=== PATIENT | male | born 1955 | race Caucasian/White ===

== ENCOUNTER 2019-03-20 06:21 | Day surgery (SDC) | payer OTHER ==
[~2019-03-20 06:21] MED LIST: ALTACE5 MG; CIALIS5 MG PO; FLONASE16 GM; GLUMETZA1000 MG; INVOKANA300 MG PO; JANUVIA100 MG PO; LANTU; LANTUS100 U/ML; LOVAZA1 G; NOVOLOG; NOVOLOG100 U/M1; OMEGA3 PO; ZOCOR20 MG; ZOCOR20 MG PO
== END 2019-03-20 12:40 | disposition home or self-care (01) ==
LOC: CIR.AMB 06:21
DX: L72.0 Epidermal cyst (principal)

== ENCOUNTER → 2020-11-21 | Emergency (ER) | payer OTHER ==
[~2020-11-21] VITALS: Ht 182.9 cm; Wt 102.1 kg
[~2020-11-21] MED LIST changes: +ATACAND32 MG PO; +HUMALOG100 UNIT/1
== END | disposition left against medical advice (07) ==
LOC: ER 23:27
DX: Z53.20 Procedure and treatment not carried out because of patient's decision for unspecified reasons (principal)

== ENCOUNTER 2020-11-30 20:42 | Emergency (ER) | payer OTHER ==
[~2020-11-30] VITALS: Ht 182.9 cm; Wt 102.1 kg
[~2020-11-30 20:42] MED LIST changes: -ATACAND32 MG PO
[2020-11-30] MEDS ORDERED: ATACAND32 MG PO (21:10)
== END 2020-12-01 00:25 | disposition home or self-care (01) ==
LOC: ER 20:42
DX: R50.83 Postvaccination fever (principal)

== ENCOUNTER 2024-09-26 09:44 | Outpatient (CLI) | payer OTHER ==
[~2024-09-26 09:44] MED LIST changes: +ATACAND32 MG PO; +COZAAR100 MG PO; +EZALLOR SPRINKL20 MG PO; +JARDIANCE25 MG PO; +LANTUS SOL100 UNIT/1; +PEPCID AC20 MG PO; +SKYRIZI150 MG/1 M; +TRULICITY3 MG/0.5 M; +ZYRTEC10 M3 PO
[2024-09-26 11:49] LABS: INR 1.27; PROTHROMBIN TIME 13.6 SECONDS (9.0-11.5)
[2024-09-27] MEDS ORDERED: MIRALAX17 GM PO (11:58)
[2024-09-27] MEDS ORDERED: TYLENOL ARTHRI650 MG PO (11:58)
[2024-09-27] MEDS ORDERED: TRAMADOL HCL50 MG PO (11:58)
== END 2024-09-26 09:45 | disposition home or self-care (01) ==
LOC: LAB 09:44
PROVIDERS: ATTEND Anesthesiology
DX: D68.9 Coagulation defect, unspecified (principal)

== ENCOUNTER 2024-09-27 08:49 | Day surgery (SDC) | payer OTHER ==
[2024-09-14 09:04] VITALS: BP 142/76
[2024-09-14 09:19] LABS: PH,URINE 5.5 (5.0-8.0); URINE APPEARANCE Clear; URINE BILIRRUBIN Negative (NEGATIVE); URINE BLOOD Negative; URINE COLOR Yellow; URINE KETONE Negative (NEGATIVE); URINE LEUKOCYTE Negative; URINE NITRATE Negative; URINE PROTEIN Negative (NEGATIVE); URINE UROBILINOGEN 0.2 E.U./dl
[2024-09-14 09:20] LABS: URINE BACTERIA 7.3 uL (0.0-1933); URINE RBC 3.3 uL (0.0-20.8)
[2024-09-14 09:24] LABS: HEMATOCRIT 43.4 % (39.0-48.0); MEAN CELL VOLUME 91.5 fL (80.0-100.00); MEAN CORPUSCULAR HEMOGLOBIN 31.6 pg (27.00-32.0); MEAN CORPUSCULAR HGB CONC 34.5 g/dl (32.0-36.0); PLATELET COUNT 180 K/uL (150-450); RED BLOOD COUNT 4.74 M/uL (4.00-6.00); RED CELL DISTRIBUTION WIDTH 13.8 % (11.5-14.5)
[2024-09-14 09:25] LABS: URINE CAST 0.14 uL (0.0-1.40); URINE GLUCOSE >=1000 MG/DL (NEGATIVE); URINE WBC 1.5 uL (0.0-23.2)
[2024-09-14 09:36] LABS: INR 1.29; PARTIAL THROMBOPLASTIN TIME 29.2 SECONDS (22.0-34.0); PROTHROMBIN TIME 13.8 SECONDS (9.0-11.5)
[2024-09-14 09:47] LABS: ALBUMIN 4.2 gm/dL (3.4-5.0); BILIRUBIN TOTAL 0.58 mg/dL (0.3-1.2); CALCIUM 9.7 mg/dL (8.5-10.1); CREATININE SERUM 0.83 mg/dL (0.70-1.30); GFR 91.86; GLOBULINA 3.3 G/DL (2.4-3.5); POTASSIUM 5.08 mEq/L (3.5-5.1); TOTAL PROTEIN 7.5 gm/dL (6.4-8.2)
[~2024-09-27] VITALS: Ht 182.9 cm; Wt 95.3 kg
[2024-09-27] MEDS ORDERED: CEFAZOLIN SODIUM 1,000 MG VIAL ONE (10:00)
[2024-09-27] MEDS ORDERED: MIRALAX17 GM PO (11:58)
[2024-09-27] MEDS ORDERED: TRAMADOL HCL50 MG PO (11:58)
[2024-09-27] MEDS ORDERED: TYLENOL ARTHRI650 MG PO (11:58)
[2024-09-27] MEDS ORDERED: BUPIVACAINE HCL 0.5% 50ML VIAL ONE (12:08)
[2024-09-27] MEDS ORDERED: MORPHINE SULFATE 4 MG/ML VIAL IV ONE (17:40)
[2024-09-27 22:20] VITALS: BP 152/72; O2SAT 100
== END 2024-09-27 21:45 | disposition home or self-care (01) ==
LOC: CIR.AMB 08:49
PROVIDERS: ATTEND Surgery
DX: K40.90 Unilateral inguinal hernia, without obstruction or gangrene, not specified as recurrent (principal); K42.0 Umbilical hernia with obstruction, without gangrene; I10 Essential (primary) hypertension; J45.909 Unspecified asthma, uncomplicated; G47.30 Sleep apnea, unspecified; E11.9 Type 2 diabetes mellitus without complications
CPT/HCPCS: 49650; 49592; C1781